=== PATIENT | male | born 1980 | race American Indian/Alaskan Native ===

== ENCOUNTER 2020-10-05 22:30 | Emergency (ER) | payer SELFPAY ==
[2020-10-05] MEDS ORDERED: HYOSCYAMINE SUBL 0.125 MG TAB SL ONE (22:53)
[2020-10-05] MEDS ORDERED: ONDANSETRON 4 MG ODT TAB PO ONE (22:53)
[2020-10-05 23:14] LABS: Basophils % (Auto) 0.2 % (0.0-1.8); Hematocrit 44.1 % (35.5-45.6); Hemoglobin 14.7 gm/dl (11.8-15.2); Lymphocytes # (Auto) 1.3 K/mm3 (1.2-5.4); Lymphocytes % (Auto) 13.1 % (13.4-35.0); Mean Corpuscular HGB Conc 34 % (32-34); Mean Corpuscular Volume 85 fl (84-94); Monocytes # (Auto) 0.6 K/mm3 (0.0-0.8); Monocytes % (Auto) 5.6 % (0.0-7.3); Platelet Count 216 K/mm3 (140-440); Red Blood Count 5.17 M/mm3 (3.65-5.03); Red Cell Distribution Width 14.4 % (13.2-15.2)
[2020-10-05 23:37] LABS: Alanine Aminotransferase 15 units/L (7-56); BUN/Creatinine Ratio 9; Blood Urea Nitrogen 9 mg/dL (9-20); Hemolysis Index 5
--- NOTE | 2020-10-05 23:42 | Emergency Department Report ---
ED General Adult HPI - General Chief complaint: Abdominal Pain Stated complaint: STOMACH PAIN Time Seen by Provider: 10/05/20 22:50 Source: patient Mode of arrival: Ambulatory Limitations: No Limitations - History of Present Illness Initial comments: Patient is a 40-year-old male presents emergency room complaints of generalized abdominal cramping and increased gas that began yesterday. Patient states that 2 days ago he ate approximately 5 honey buns in one day. He states that he then became constipated and had to take a laxative. He states since taking the laxative he has had frequent diarrhea. He states that he also now has associated nausea and had 2 episodes of vomiting. He states that he feels a cramping and churning sensation in his abdomen. He denies any fever, back pain, urinary symptoms, pain or swelling in the testicles, hematochezia, hematemesis, melena, pus in the stool. He denies any recent travel, sick contacts, recent a ntibiotics, recent camping, water from a different source. No past medical history. No allergies to medications. He denies any past abdominal surgical history. - Related Data Previous Rx's Medication Instructions Recorded Last Taken Type Mag Hydrox/Aluminum Hyd/Simeth 10 ml PO QID PRN #1 bottle 10/06/20 Unknown Rx [Maalox Advanced Suspension] Ondansetron [Zofran Odt] 4 mg PO Q8HR PRN #10 tab.rapdis 10/06/20 Unknown Rx Allergies Allergy/AdvReac Type Severity Reaction Status Date / Time No Known Allergies Allergy Unverified 10/05/20 22:49 ED Review of Systems ROS: Stated complaint: STOMACH PAIN Other details as noted in HPI Comment: All other systems reviewed and negative ED Past Medical Hx - Social History Smoking Status: Current Every Day Smoker Substance Use Type: Alcohol - Medications Home Medications: Home Medications Medication Instructions Recorded Confirmed Last Taken Type Mag Hydrox/Aluminum Hyd/Simeth 10 ml PO QID PRN #1 bottle 10/06/20 Unknown Rx [Maalox Advanced Suspension] Ondansetron [Zofran Odt] 4 mg PO Q8HR PRN #10 tab.rapdis 10/06/20 Unknown Rx ED Physical Exam - General Limitations: No Limitations General appearance: alert, in no apparent distress - Head Head exam: Present: atraumatic, normocephalic - Eye Eye exam: Present: normal appearance - ENT ENT exam: Present: mucous membranes moist - Respiratory Respiratory exam: Present: normal lung sounds bilaterally. Absent: respiratory distress, wheezes, rales, rhonchi, chest wall tenderness, accessory muscle use, decreased breath sounds, prolonged expiratory - Cardiovascular Cardiovascular Exam: Present: regular rate, normal rhythm, normal heart sounds. Absent: systolic murmur, diastolic murmur, rubs, gallop - GI/Abdominal GI/Abdominal exam: Present: soft, normal bowel sounds. Absent: distended, tenderness, guarding, rebound, rigid - Neurological Exam Neurological exam: Present: alert, oriented X3 - Psychiatric Psychiatric exam: Present: normal affect, normal mood - Skin Skin exam: Present: warm, dry, intact ED Course Vital Signs 10/05/20 22:43 Temperature 98.1 F Pulse Rate 57 L Respiratory 16 Rate Blood Pressure 168/99 O2 Sat by Pulse 100 Oximetry ED Medical Decision Making - Lab Data Result diagrams: 10/05/20 22:54 10/05/20 22:54 Lab Results 10/05/20 10/05/20 Range/Units 22:54 22:54 WBC 9.9 (4.5-11.0) K/mm3 RBC 5.17 H (3.65-5.03) M/mm3 Hgb 14.7 (11.8-15.2) gm/dl Hct 44.1 (35.5-45.6) % MCV 85 (84-94) fl MCH 29 (28-32) pg MCHC 34 (32-34) % RDW 14.4 (13.2-15.2) % Plt Count 216 (140-440) K/mm3 Lymph % (Auto) 13.1 L (13.4-35.0) % Mclennan % (Auto) 5.6 (0.0-7.3) % Eos % (Auto) 0.0 (0.0-4.3) % Baso % (Auto) 0.2 (0.0-1.8) % Lymph # (Auto) 1.3 (1.2-5.4) K/mm3 Mclennan # (Auto) 0.6 (0.0-0.8) K/mm3 Eos # (Auto) 0.0 (0.0-0.4) K/mm3 Baso # (Auto) 0.0 (0.0-0.1) K/mm3 Seg Neutrophils % 81.1 H (40.0-70.0) % Seg Neutrophils # 8.1 H (1.8-7.7) K/mm3 Sodium 135 L (137-145) mmol/L Potassium 4.0 (3.6-5.0) mmol/L Chloride 97.9 L (98-107) mmol/L Carbon Dioxide 25 (22-30) mmol/L Anion Gap 16 mmol/L BUN 9 (9-20) mg/dL Creatinine 1.0 (0.8-1.3) mg/dL Estimated GFR > 60 ml/min BUN/Creatinine Ratio 9 % Glucose 124 H (75-100) mg/dL Calcium 10.0 (8.4-10.2) mg/dL Total Bilirubin 0.90 (0.1-1.2) mg/dL AST 14 (5-40) units/L ALT 15 (7-56) units/L Alkaline Phosphatase 87 (35-129) units/L Total Protein 7.5 (6.3-8.2) g/dL Albumin 5.0 (3.9-5) g/dL Albumin/Globulin Ratio 2.0 % Lipase 12 L (13-60) units/L - Medical Decision Making Patient is a 40-year-old male presents emergency room complaints of generalized abdominal cramping and increased gas that began yesterday. Patient states that 2 days ago he ate approximately 5 honey buns in one day. He states that he then became constipated and had to take a laxative. He states since taking the laxative he has had frequent diarrhea. He states that he also now has associated nausea and had 2 episodes of vomiting. He states that he feels a cramping and churning sensation in his abdomen. He denies any fever, back pain, urinary symptoms, pain or swelling in the testicles, hematochezia, hematemesis, melena, pus in the stool. He denies any recent travel, sick contacts, recent antibiotics, recent camping, water from a different source. No past medical history. No allergies to medications. He denies any past abdominal surgical history. Vitals are stable. No abdominal tenderness on exam, no guarding, no rebound, no rigidity, normal bowel sounds, no peritoneal signs. Labs are stable. Symptoms could be related to his food and laxative intake versus gastroenteritis. Do not suspect acute emergent intra-abdominal pathology at this time, he is tolerating p.o. intake without difficulty, he has no abdominal tenderness on exam, no leukocytosis, no fever. He had no further episodes of vomiting or diarrhea while in the emergency department. Patient given p.o. medications while in the emergency department and symptoms improved and he was feeling much better and ready to go home. Patient given prescription for Zofran and Maalox. Advised patient Please take medication as prescribed as needed. Increase your water intake. Eat a bland liquid diet slowly advance your diet as tolerated. Follow-up with primary care doctor. Return to emergency room for any worsening symptoms. Critical care attestation.: If time is entered above; I have spent that time in minutes in the direct care of this critically ill patient, excluding procedure time. ED Disposition Clinical Impression: Abdominal cramping, Nausea vomiting and diarrhea Disposition: TO HOME OR SELFCARE Is pt being admited?: No Does the pt Need Aspirin: No Condition: Stable Instructions: Viral Gastroenteritis, Adult, Probiotics Additional Instructions: Please take medication as prescribed as needed. Increase your water intake. Eat a bland liquid diet slowly advance your diet as tolerated. Follow-up with primary care doctor. Return to emergency room for any worsening symptoms. Prescriptions: Mag Hydrox/Aluminum Hyd/Simeth [Maalox Advanced Suspension] 10 ml PO QID PRN #1 bottle PRN Reason: pain/gas/cramping/burning Ondansetron [Zofran Odt] 4 mg PO Q8HR PRN #10 tab.rapdis PRN Reason: nausea/vomiting Referrals: ANGEL GUTIERREZ MD [Primary Care Provider] - 2-3 Days ALLEY CABALLERO MD [Staff Physician] - 2-3 Days [facility] [Provider Group] - 2-3 Days Forms: Work/School Release Form(ED) Time of Disposition: 00:59 Print Language: [place]
[2020-10-05] MEDS ORDERED: SIMETHICONE 80 MG CHEW TAB PO ONE (23:45)
[2020-10-06 02:00] VITALS: BP 162/81
== END 2020-10-06 01:20 | disposition home or self-care (01) ==
LOC: ED 22:30
DX: R10.84 Generalized abdominal pain (principal); R11.2 Nausea with vomiting, unspecified; R19.7 Diarrhea, unspecified; F17.200 Nicotine dependence, unspecified, uncomplicated; Z79.899 Other long term (current) drug therapy
CPT/HCPCS: 36415; 80053; 83690; 85025; 99283; Q0162